=== PATIENT | male | born 1975 | race Two or more races ===

== ENCOUNTER → 2020-01-01 | Outpatient (CLI) | payer OTHER ==
--- NOTE | 2020-01-01 18:52 | KCIC ---
EXAM: Right knee, 3 views. HISTORY: Pain. COMPARISON: None. FINDINGS: 3 views of the right knee are obtained. There is no fracture, dislocation or subluxation. There is a moderate knee effusion. There is enthesopathy along the superior patella. IMPRESSION: 1. No acute osseous finding. 2. Moderate right knee effusion. Electronically signed by: Karin Reed MD (01/01/2020 3:30 PM) [facility] [place]
== END | disposition home or self-care (01) ==
LOC: KCIC 15:00
PROVIDERS: ATTEND Nurse Practitioner Family
DX: M25.461 Effusion, right knee (principal); M76.891 Other specified enthesopathies of right lower limb, excluding foot
CPT/HCPCS: 73562